=== PATIENT | female | born 1995 ===

== ENCOUNTER 2016-12-29 20:47 | Emergency (ER) | payer OTHER ==
[2016-12-29 20:58] VITALS: BP 104/63; PULSE 77; RESP 16; TEMP 98.7; O2SAT 99
--- NOTE | 2016-12-29 21:23 | ED PDOC ---
HPI: Abdomen Time Seen by Provider: 12/29/16 21:06 Chief Complaint (Nursing): Abdominal Pain Chief Complaint (Provider): abdominal pain History Per: Patient Additional Complaint(s): 21-year-old female with history of gastritis presents to emergency department with abdominal pain, vomiting and diarrhea that started 4 days ago. Patient is unable to eat or drink secondary to symptoms. No fever or chills. Patient does not take any medicine for gastritis and a regular basis. She rates overall abdominal pain is 5 out of 10 stating it is concentrated mostly right upper quadrant and epigastric region. Past Medical History Reviewed: Historical Data, Nursing Documentation, Vital Signs Vital Signs: Last Vital Signs Temp 98.7 F 12/29/16 20:56 Pulse 77 12/29/16 20:56 Resp 16 12/29/16 20:56 BP 104/63 12/29/16 20:56 Pulse Ox 99 12/29/16 22:52 - Medical History PMH: Anxiety, Depression, Gastritis - Surgical History Surgical History: No Surg Hx - Family History Family History: States: No Known Family Hx - Living Arrangements Living Arrangements: With Family - Social History Current smoker - smoking cessation education provided: No Alcohol: None Drugs: Denies - Home Medications Home Medications: Ambulatory Orders Medication Instructions Recorded Dextroamphetamine/Amphetamine 15 mg PO DAILY PRN 12/21/14 [Adderall] Omeprazole [PrilOSEC] 40 mg PO DAILY #30 ecc 12/21/14 Famotidine [Pepcid] 20 mg PO DAILY #30 tab 12/30/16 Ondansetron [Zofran Odt] 4 mg PO ASDIR PRN #15 odt 12/30/16 - Allergies Allergies/Adverse Reactions: Allergies Allergy/AdvReac Type Severity Reaction Status Date / Time kiwi Allergy RASH Verified 09/14/15 18:54 latex Allergy RASH Verified 12/29/16 20:55 Review of Systems ROS Statement: Except As Marked, All Systems Reviewed And Found Negative Constitutional: Negative for: Fever, Chills Cardiovascular: Negative for: Chest Pain Respiratory: Negative for: Cough Gastrointestinal: Positive for: Nausea, Vomiting, Abdominal Pain, Diarrhea. Negative for: Constipation, Melena, Hematochezia, Hematemesis, Rectal Pain Genitourinary Female: Negative for: Dysuria, Frequency Neurological: Negative for: Headache, Dizziness Physical Exam - Reviewed Nursing Documentation Reviewed: Yes Vital Signs Reviewed: Yes - Physical Exam Appears: Positive for: Well, Non-toxic, No Acute Distress Skin: Negative for: Rash Eye Exam: Positive for: Normal appearance Cardiovascular/Chest: Positive for: Regular Rate, Rhythm Respiratory: Positive for: Normal Breath Sounds Gastrointestinal/Abdominal: Positive for: Tenderness (epigastric, RUQ). Negative for: Distended, Guarding, Rebound Back: Negative for: L CVA Tenderness, R CVA Tenderness Extremity: Positive for: Normal ROM. Negative for: Pedal Edema Neurologic/Psych: Positive for: Alert, Oriented - Laboratory Results Result Diagrams: 12/29/16 21:48 12/29/16 21:48 Urine POC: Negative Urine dip results: Negative for: Leukocyte Esterase, Blood, Nitrate, Ketones, Glucose, Bilirubin, Protein - ECG O2 Sat by Pulse Oximetry: 99 Pulse Ox Interpretation: Normal - Other Rad Abd US X-Ray: Read By Radiologist X-Ray Interpretation: no acute finding Medical Decision Making Medical Decision Makin21 year old with abdominal pain, vomiting and diarrhea Plan: CBC CMP Lipase Urine dip Urine test IVF IV toradol IV zofran Abd US PO maalox and 20 mg PO pepcid Patient is aware of all diagnostic testing results, all questions answered. Patient was able to tolerate juice and crackers, no further emesis noted. Patient was given rx pepcid and zofran. Dietary instructions provided. Patient was referred to clinic for follow up. Disposition - Clinical Impression Clinical Impression: Gastritis, Gastroenteritis - Patient ED Disposition Is Patient to be Admitted: No Counseled Patient/Family Regarding: Studies Performed, Diagnosis, Need For Followup, Rx Given - Disposition Referrals: [facility] [Outside] Disposition: Routine/Home Disposition Time: 00:40 Condition: IMPROVED Additional Instructions: TAKE RX MEDS DIRECTED. TYLENOL FOR PAIN NEEDED. FOLLOW DIETARY INSTRUCTIONS. FOLLOW UP WITH CLINIC IN 2-3 DAYS. Prescriptions: Famotidine [Pepcid] 20 mg PO DAILY #30 tab Ondansetron [Zofran Odt] 4 mg PO ASDIR PRN #15 odt PRN Reason: Nausea/Vomiting Instructions: Gastritis (ED), Gastroenteritis (ED), Diet for Ulcers and Gastritis (ED), Nutrition Tips for Relief of Diarrhea (ED) Forms: [facility] ([place]) Results - Lab Results Lab Results: 12/29/16 12/29/16 21:48 21:48 WBC 8.3 D RBC 4.87 Hgb 13.5 Hct 42.3 MCV 86.7 D MCH 27.8 MCHC 32.0 L RDW 13.9 Plt Count 170 MPV 8.0 Neut % (Auto) 63.6 Lymph % (Auto) 28.1 Harney % (Auto) 6.6 Eos % (Auto) 1.2 Baso % (Auto) 0.5 Neut # 5.3 Lymph # 2.3 Harney # 0.5 Eos # 0.1 Baso # 0.0 Sodium 138 Potassium 4.6 Chloride 105 Carbon Dioxide 23 Anion Gap 15 BUN 17 Creatinine 0.7 Est GFR ( Amer) > 60 Est GFR (Non-Af Amer) > 60 Random Glucose 86 Calcium 9.4 Total Bilirubin 0.5 AST 27 ALT 38 Alkaline Phosphatase 54 Total Protein 7.4 Albumin 4.4 Globulin 3.0 Albumin/Globulin Ratio 1.5 Lipase 48
[2016-12-29] MEDS ORDERED: Sodium Chloride 0.9% 1,000 ML IV STA (21:24)
[2016-12-29 21:54] LABS: BASO % 0.5 % (0.0-2.0); EOS # 0.1 K/uL (0.0-0.7); EOS % 1.2 % (0.0-4.0); HEMATOCRIT 42.3 % (34.0-47.0); LYMPH # 2.3 K/uL (1.0-4.3); LYMPH % 28.1 % (20.0-40.0); MEAN CELL VOLUME 86.7 fl (81.0-99.0); MEAN CORPUSCULAR HEMOGLOBIN 27.8 pg (27.0-31.0); MONO # 0.5 K/uL (0.0-0.8); MONO % 6.6 % (0.0-10.0); NEUT # 5.3 K/uL (1.8-7.0); NEUT % 63.6 % (50.0-75.0); RED CELL DISTRIBUTION WIDTH 13.9 % (11.5-14.5); WHITE BLOOD COUNT 8.3 K/uL (4.8-10.8)
[2016-12-29 22:03] LABS: ALB/GLOB RATIO 1.5 (1.0-2.1); ALKALINE PHOSPHATASE 54 U/L (38-126); ALT/SGPT 38 U/L (9-52); AST/SGOT 27 U/L (14-36); BILIRUBIN,TOTAL 0.5 mg/dl (0.2-1.3); BLOOD UREA NITROGEN 17 mg/dl (7-17); CALCIUM 9.4 mg/dL (8.4-10.2); CARBON DIOXIDE 23 mmol/L (22-30); CHLORIDE 105 mmol/L (98-107); GFR AFRICAN-AMERICAN > 60; GLUCOSE,RANDOM 86 mg/dL (65-105); LIPASE 48 U/L (23-300); POTASSIUM 4.6 MMOL/L (3.6-5.0); SODIUM 138 mmol/l (132-148); TOTAL PROTEIN 7.4 G/DL (6.3-8.2)
--- NOTE | 2016-12-29 22:59 | US ---
EXAM: US Abdomen Complete CLINICAL HISTORY: 21 years old, female; Pain; Abdominal pain; Epigastric; Additional info: Abd pain, vomiting TECHNIQUE: Real-time ultrasound of the abdomen (complete) with image documentation. COMPARISON: No relevant prior studies available. FINDINGS: Liver: Normal echogenicity. No mass. No intrahepatic bile duct dilatation. Gallbladder: No gallstones. No wall thickening. No pericholecystic fluid. No sonographic Grant's sign. Common bile duct: No dilatation. No stones. Pancreas: Unremarkable as visualized. Kidneys: Normal echogenicity. No hydronephrosis. Spleen: No splenomegaly. Aorta: Unremarkable. No aneurysm. Inferior vena cava: Unremarkable. Free fluid: No significant free fluid. IMPRESSION: 1.No acute findings.
[2016-12-29] MEDS ORDERED: Famotidine 40 MG/5 ML PO STA (23:09)
== END 2016-12-30 01:21 | disposition home or self-care (01) ==
LOC: H.ER 20:47
DX: K52.9 Noninfective gastroenteritis and colitis, unspecified (principal); F41.9 Anxiety disorder, unspecified; F32.9 Major depressive disorder, single episode, unspecified
CPT/HCPCS: 76700; 80053; 81025; 83690; 85025; 96361; 96374; 96375; 96376; 99283; J1885; J2405; J7040

== ENCOUNTER 2018-09-08 17:17 | Emergency (ER) | payer BC ==
[2018-09-08 17:19] VITALS: BMI 25.0
[2018-09-08 17:22] VITALS: TEMP 97.4; O2SAT 99
[2018-09-08] MEDS ORDERED: Sodium Chloride 0.9% 1,000 ML IV STA (17:37)
--- NOTE | 2018-09-08 17:41 | ED PDOC ---
HPI: Abdomen Time Seen by Provider: 09/08/18 17:30 Chief Complaint (Nursing): Abdominal Pain Chief Complaint (Provider): abdominal pain/vomiting History Per: Patient History/Exam Limitations: no limitations Onset/Duration Of Symptoms: Hrs Outside of [place] travel?: No Current Symptoms Are (Timing): Still Present Pain Scale Rating Of: 6 Location Of Pain/Discomfort: Diffuse Quality Of Discomfort: Cramping Associated Symptoms: Nausea, Vomiting, Diarrhea (x1). denies: Fever, Chills Exacerbating Factors: Food Last Bowel Movement: Today Additional History Per: Patient Additional Complaint(s): 23 year old female with no significant medical history was brought in by by ems on wheelchair for persistent vomiting since 12pm this afternoon, an hour after she took a tab of an "antibiotic" for a throat pain started 2 days ago. She states she has not been able to hold oral intake since she started vomiting. She also reports she had one episode of diarrhea this afternoon. She had an unquantified fever two days ago, denies fever today. Past Medical History Reviewed: Historical Data, Nursing Documentation, Vital Signs Vital Signs: Last Vital Signs Temp 97.4 F L 09/08/18 17:19 Pulse 88 09/08/18 17:19 Resp 18 09/08/18 17:19 BP 128/78 09/08/18 17:19 Pulse Ox 99 09/08/18 17:19 Primary Care Provider: FAMILY PROVIDER,NO - Medical History PMH: Anxiety, Depression, Gastritis Denies: Diabetes, Hepatitis, HIV, HTN, Seizures, Sexually Transmitted Disease - Surgical History Surgical History: No Surg Hx - Family History Family History: States: Unknown Family Hx - Social History Alcohol: None Drugs: Denies - Immunization History Hx Tetanus Toxoid Vaccination: No Hx Influenza Vaccination: No Hx Pneumococcal Vaccination: No - Home Medications Home Medications: Ambulatory Orders Medication Instructions Recorded Dextroamphetamine/Amphetamine 15 mg PO DAILY PRN 12/21/14 [Adderall] Omeprazole [PrilOSEC] 40 mg PO DAILY #30 ecc 12/21/14 Famotidine [Pepcid] 20 mg PO DAILY #30 tab 12/30/16 Ondansetron [Zofran Odt] 4 mg PO ASDIR PRN #15 odt 12/30/16 Ondansetron ODT [Zofran ODT] 4 mg PO Q6H #8 odt 09/08/18 - Allergies Allergies/Adverse Reactions: Allergies Allergy/AdvReac Type Severity Reaction Status Date / Time kiwi Allergy RASH Verified 09/14/15 18:54 latex Allergy RASH Verified 12/29/16 20:55 Review of Systems ROS Statement: Except As Marked, All Systems Reviewed And Found Negative Constitutional: Negative for: Fever, Weakness, Malaise Cardiovascular: Negative for: Chest Pain Respiratory: Negative for: Shortness of Breath, SOB with Exertion, Wheezing Gastrointestinal: Positive for: Nausea, Vomiting, Abdominal Pain, Diarrhea. Negative for: Constipation, Melena, Hematochezia Skin: Negative for: Rash Physical Exam - Reviewed Nursing Documentation Reviewed: Yes Vital Signs Reviewed: Yes - Physical Exam Appears: Positive for: Well, Non-toxic, No Acute Distress Head Exam: Positive for: ATRAUMATIC, NORMAL INSPECTION, NORMOCEPHALIC Skin: Positive for: Normal Color, Warm, DRY Eye Exam: Positive for: EOMI, Normal appearance, PERRL ENT: Positive for: Normal ENT Inspection Neck: Positive for: Normal, Painless ROM, Supple Cardiovascular/Chest: Positive for: Regular Rate, Rhythm Respiratory: Positive for: CNT, Normal Breath Sounds Gastrointestinal/Abdominal: Positive for: Bowel Sounds (normactive ), Soft, Tenderness (Diffuse, patient states abdominal pain started after taking antibiotic. ). Negative for: Mass, Guarding Back: Positive for: Normal Inspection. Negative for: L CVA Tenderness, R CVA Tenderness Extremity: Positive for: Normal ROM Neurological/Psych: Positive for: Awake, Alert, Normal Tone, Oriented - Laboratory Results Result Diagrams: 09/08/18 17:47 09/08/18 17:47 Urine POC: Negative - ECG O2 Sat by Pulse Oximetry: 99 Medical Decision Making Medical Decision Making: --cbc --cmp --0.9ns ]--zofran --rapid strep re-assess 18:42 Patient sleeping, no distress. ivf infusing, pending UA. 19:09: Patient awake, patient states nausea has subsided. abdominal pain improved from 9/10 to 5/10 after pepcid. Patient ambulated to bathroom to obtain urine sample. Labs reviewed by me, wbc: 16.6 possibly from vomiting. 2002 Patient is eating jello in room, states she is craving chipotle. She states she feels much better. Clinical findings discussed with patient. Patient is stable for D/C home. rapid strep (-). rx given for zofran. patient states she understands and agrees with plan. Disposition - Clinical Impression Clinical Impression: Vomiting - Patient ED Disposition Is Patient to be Admitted: No Counseled Patient/Family Regarding: Diagnosis, Rx Given - Disposition Disposition: Routine/Home Disposition Time: 20:00 Condition: IMPROVED Prescriptions: Ondansetron ODT [Zofran ODT] 4 mg PO Q6H #8 odt Instructions: Nausea and Vomiting, Adult (DC) Print Language: DANISH - POA Present On Arrival: None
[2018-09-08 17:59] LABS: BASO % 0.3 % (0.0-2.0); EOS % 0.1 % (0.0-4.0); HEMOGLOBIN 14.2 g/dL (12.0-16.0); LYMPH # 1.8 K/uL (1.0-4.3); LYMPH % 10.7 % (20.0-40.0); MEAN CELL VOLUME 84.1 fl (81.0-99.0); MEAN CORPUSCULAR HEMOGLOBIN 27.1 pg (27.0-31.0); MEAN CORPUSCULAR HGB CONC 32.3 g/dL (33.0-37.0); MEAN PLATELET VOLUME 8.3 fl (7.2-11.7); MONO # 0.7 K/uL (0.0-0.8); MONO % 4.5 % (0.0-10.0); NEUT % 84.4 % (50.0-75.0); RBC 5.24 Mil/uL (3.80-5.20); WHITE BLOOD COUNT 16.6 K/uL (4.8-10.8)
[2018-09-08 18:07] LABS: ALB/GLOB RATIO 1.3 (1.0-2.1); ALBUMIN 4.7 g/dL (3.5-5.0); ALT/SGPT 22 U/L (9-52); AST/SGOT 25 U/L (14-36); BLOOD UREA NITROGEN 10 mg/dl (7-17); CALCIUM 9.6 mg/dL (8.4-10.2); GFR NON-AFRICAN AMERICAN > 60; LIPASE 24 U/L (23-300)
[2018-09-08 19:37] LABS: SQUAMOUS EPITHIAL 4 /hpf (0-5); URINE BILIRUBIN NEGATIVE (NEGATIVE); URINE BLOOD NEGATIVE (NEGATIVE); URINE CLARITY SLIGHTY-CLOUDY (Clear); URINE COLOR YELLOW (YELLOW); URINE GLUCOSE (UA) NEG (NEGATIVE); URINE LEUKOCYTE ESTERASE SMALL Leu/uL (Negative); URINE PROTEIN 30 mg/dL (NEGATIVE); URINE UROBILINOGEN 0.2-1.0 mg/dL (0.2-1.0)
[2018-09-08 22:04] VITALS: BP 125/72; PULSE 85; RESP 17
== END 2018-09-08 20:45 | disposition home or self-care (01) ==
LOC: H.ER 17:17
DX: R11.10 Vomiting, unspecified (principal); Z86.59 Personal history of other mental and behavioral disorders
CPT/HCPCS: 80053; 81003; 81025; 83690; 85025; 87070; 87430; 96374; 96375; 99284; J1885; J2405; J7030